=== PATIENT | male | born 1955 ===

== ENCOUNTER 2017-05-14 11:49 | Inpatient (IN) ==
[2017-05-14] MEDS ORDERED: PANTOPRAZOLE 40 MG VIAL IV STA (12:53)
[2017-05-14] MEDS ORDERED: ONDANSETRON 4 MG/2 ML VIAL IV STA (12:53)
[2017-05-14] MEDS ORDERED: SODIUM CHLORIDE 0.9% 1,000 ML IV STA (12:53)
[2017-05-14 13:05] LABS: Basophils % 0.3 % (0.0-0.8); Eosinophils # 0.2 10*3/uL (0.0-0.87); Eosinophils % 1.6 % (0.00-10.9); Hematocrit 42.4 VOL% (42.0-52.0); Hemoglobin 15.2 GM/DL (14.0-18.0); Immature Granulocytes % 0.5 %; Immature Granulocytes Absolute 0.05 #; Lymphocytes # 1.4 10*3/uL (1.4-4.0); Lymphocytes % 14.5 % (21.2-54.2); Mean Corpuscular HGB Conc 35.8 GM/DL (32-36); Mean Corpuscular Hemoglobin 33 PG (27-34); Mean Platelet Volume 10.5 FL (9.6-12.0); Monocytes # 1.1 10*3/uL (0.11-0.8); Monocytes % 11.1 % (1.7-12.7); Platelet Count 231 T/CUMM (130-400); Red Blood Count 4.56 MC/CUMM (3.8-5.5); Red Cell Distribution Width 12.1 % (9.3-17.3); White Blood Count 9.8 T/CUMM (4-12)
[2017-05-14 13:32] LABS: Lactic Acid 0.6 MMOL/L (0.4-2.0)
[2017-05-14 13:33] LABS: Albumin 3.5 G/DL (3.4-5.0); Bilirubin,Total 0.9 MG/DL (0.2-1.0); Calcium 9.1 MG/DL (8.5-10.1); Osmolality,Calculated 274.7 MOS/KG (273-304); Potassium 3.8 MMOL/L (3.5-5.1); Total Protein 7.1 G/DL (6.4-8.3)
[2017-05-14] MEDS ORDERED: ONDANSETRON 4 MG/2 ML VIAL ONE (13:34)
[2017-05-14] MEDS ORDERED: PANTOPRAZOLE 40 MG VIAL IV ONE (13:34)
[2017-05-14] MEDS ORDERED: HYDROmorphone 2 MG/1 ML VIAL IV STA (13:39)
[2017-05-14] MEDS ORDERED: HYDROmorphone 2 MG/1 ML VIAL ONE (13:40)
[2017-05-14] MEDS ORDERED: hydrALAZINE 20 MG/1 ML VIAL IV PRN (15:00)
[2017-05-14 15:43] LABS: Amylase 160 U/L (25-115); Triglycerides 167 MG/DL (2-150)
[2017-05-14] MEDS: HYDROmorphone 2 MG/1 ML VIAL IV PRN ×2 (16:28→22:07)
[2017-05-14] MEDS: metroNIDAZOLE INJ 500 MG in PREMIX 1 EACH IV SCH ×2 (16:28→21:56)
[2017-05-14] MEDS: FAMOTIDINE 20 MG/2 ML VIAL IV SCH (16:28)
[2017-05-14] MEDS: NICOTINE 21 MG/24 HR PATCH TRANSDERM SCH (16:29)
[2017-05-14] MEDS: CIPROFLOXACIN INJ 400 MG in PREMIX 1 EACH IV SCH (16:29)
[2017-05-14] MEDS: SODIUM CHLORIDE 0.9% 1,000 ML IV SCH (16:29)
[2017-05-14] MEDS: ONDANSETRON 4 MG/2 ML VIAL IV PRN (22:07)
[2017-05-15 02:28] LABS: Apearance,Urine Clear (Clear); Glucose,Urine (UA) Negative (Negative); Ketones,Urine Negative (Negative); Nitrite,Urine Negative (Negative); Protein,Urine Negative; Urine Color Yellow (Yellow); Urine Specific Gravity 1.025 (1.001-1.035)
[2017-05-15 02:29] LABS: Bilirubin,Urine Negative (Negative); Blood, Urine Negative (Negative); Urine Urobilinogen < 2.0 EU/DL (0.2-1.0)
[2017-05-15] MEDS: FAMOTIDINE 20 MG/2 ML VIAL IV SCH ×2 (03:37→16:34)
[2017-05-15] MEDS: HYDROmorphone 2 MG/1 ML VIAL IV PRN ×5 (03:37→22:36)
[2017-05-15] MEDS: CIPROFLOXACIN INJ 400 MG in PREMIX 1 EACH IV SCH (03:37)
[2017-05-15] MEDS: SODIUM CHLORIDE 0.9% 1,000 ML IV SCH ×3 (03:38→22:38)
[2017-05-15] MEDS: metroNIDAZOLE INJ 500 MG in PREMIX 1 EACH IV SCH ×2 (04:55→10:26)
[2017-05-15 08:31] LABS: Basophils % 0.2 % (0.0-0.8); Eosinophils # 0.1 10*3/uL (0.0-0.87); Eosinophils % 1.4 % (0.00-10.9); Hematocrit 38.5 VOL% (42.0-52.0); Hemoglobin 13.3 GM/DL (14.0-18.0); Immature Granulocytes % 0.3 %; Immature Granulocytes Absolute 0.03 #; Lymphocytes # 1.1 10*3/uL (1.4-4.0); Lymphocytes % 12.5 % (21.2-54.2); Mean Corpuscular HGB Conc 34.5 GM/DL (32-36); Mean Corpuscular Hemoglobin 33 PG (27-34); Mean Platelet Volume 10.3 FL (9.6-12.0); Monocytes # 0.8 10*3/uL (0.11-0.8); Monocytes % 9.6 % (1.7-12.7); Neutrophils # 6.6 10*3/uL (1.4-7.4); Platelet Count 213 T/CUMM (130-400); Red Blood Count 4.01 MC/CUMM (3.8-5.5); Red Cell Distribution Width 12.1 % (9.3-17.3); White Blood Count 8.7 T/CUMM (4-12)
[2017-05-15] MEDS: NICOTINE 21 MG/24 HR PATCH TRANSDERM SCH (08:53)
[2017-05-15 09:00] LABS: Bilirubin,Total 0.8 MG/DL (0.2-1.0); Calcium 8.7 MG/DL (8.5-10.1); Osmolality,Calculated 274.7 MOS/KG (273-304); Potassium 4.4 MMOL/L (3.5-5.1); Total Protein 5.8 G/DL (6.4-8.3)
[2017-05-16] MEDS: FAMOTIDINE 20 MG/2 ML VIAL IV SCH ×2 (03:51→16:21)
[2017-05-16] MEDS: ONDANSETRON 4 MG/2 ML VIAL IV PRN ×2 (05:04→19:03)
[2017-05-16] MEDS: SODIUM CHLORIDE 0.9% 1,000 ML IV SCH ×3 (05:07→21:22)
[2017-05-16 05:54] LABS: Basophils % 0.3 % (0.0-0.8); Eosinophils # 0.1 10*3/uL (0.0-0.87); Hematocrit 37.8 VOL% (42.0-52.0); Immature Granulocytes % 0.3 %; Immature Granulocytes Absolute 0.02 #; Lymphocytes # 0.9 10*3/uL (1.4-4.0); Lymphocytes % 12.8 % (21.2-54.2); Mean Corpuscular HGB Conc 34.4 GM/DL (32-36); Mean Corpuscular Hemoglobin 33 PG (27-34); Mean Corpuscular Volume 94.7 FL (87-102); Mean Platelet Volume 10.5 FL (9.6-12.0); Monocytes # 0.6 10*3/uL (0.11-0.8); Monocytes % 8.5 % (1.7-12.7); Neutrophils # 5.3 10*3/uL (1.4-7.4); Neutrophils % 76.1 % (38.7-73.9); Platelet Count 205 T/CUMM (130-400); Red Blood Count 3.99 MC/CUMM (3.8-5.5); Red Cell Distribution Width 11.9 % (9.3-17.3); White Blood Count 6.9 T/CUMM (4-12)
[2017-05-16 06:27] LABS: Albumin 2.8 G/DL (3.4-5.0); Bilirubin,Total 1.2 MG/DL (0.2-1.0); Calcium 8.7 MG/DL (8.5-10.1); Osmolality,Calculated 278.4 MOS/KG (273-304); Potassium 3.8 MMOL/L (3.5-5.1)
[2017-05-16] MEDS: HYDROmorphone 2 MG/1 ML VIAL IV PRN ×2 (07:38→23:27)
[2017-05-16] MEDS: NICOTINE 21 MG/24 HR PATCH TRANSDERM SCH (10:13)
[2017-05-16] MEDS ORDERED: ACETAMINOPHEN 325 MG TABLET PO PRN (15:02)
[2017-05-17] MEDS: FAMOTIDINE 20 MG/2 ML VIAL IV SCH ×2 (02:01→17:30)
[2017-05-17] MEDS: SODIUM CHLORIDE 0.9% 1,000 ML IV SCH ×3 (02:01→23:25)
[2017-05-17] MEDS: ONDANSETRON 4 MG/2 ML VIAL IV PRN (08:02)
[2017-05-17] MEDS: NICOTINE 21 MG/24 HR PATCH TRANSDERM SCH (08:04)
[2017-05-17] MEDS: HYDROmorphone 2 MG/1 ML VIAL IV PRN ×2 (10:00→18:57)
[2017-05-18] MEDS: FAMOTIDINE 20 MG/2 ML VIAL IV SCH (03:10)
[2017-05-18] MEDS ORDERED: PANTOPRAZOLE 40 MG TABLET PO SCH (11:30)
[2017-05-18] MEDS ORDERED: PROPOFOL 200 MG/20 ML VIAL IV ONE (11:45)
[2017-05-18] MEDS ORDERED: LIDOCAINE 2% 5 ML VIAL ONE (11:45)
[2017-05-18 12:27] VITALS: BP 145/87
[2017-05-18] MEDS: NICOTINE 21 MG/24 HR PATCH TRANSDERM SCH (12:36)
== END 2017-05-18 14:48 | disposition home or self-care (01) | DRG 440 ==
LOC: N.ED 11:49 → SUATTDRO 14:49 → N.EDINP 14:49 → N.5E 16:00
PROVIDERS: ATTEND Internal Medicine

== ENCOUNTER 2021-02-11 17:47 | Inpatient (IN) ==
[2021-02-11 18:27] LABS: Basophils % 0.3 % (0.0-0.8); Eosinophils # 0.1 10*3/uL (0.0-0.87); Hematocrit 44.2 VOL% (42.0-52.0); Hemoglobin 15.4 GM/DL (14.0-18.0); Immature Granulocytes % 0.5 %; Immature Granulocytes Absolute 0.06 #; Lymphocytes # 1.3 10*3/uL (1.4-4.0); Lymphocytes % 10.9 % (21.2-54.2); Mean Corpuscular HGB Conc 34.8 GM/DL (32-36); Mean Corpuscular Volume 92.9 FL (87-102); Mean Platelet Volume 10.8 FL (9.6-12.0); Monocytes % 6.2 % (1.7-12.7); Neutrophils % 81.1 % (38.7-73.9); Platelet Count 176 T/CUMM (130-400); Red Blood Count 4.76 MC/CUMM (3.8-5.5); Red Cell Distribution Width 12.3 % (9.3-17.3); White Blood Count 11.7 T/CUMM (4-12)
[2021-02-11] MEDS ORDERED: ALUM/MAG/SIMETH/LIDO VISC 1:1 30 ML BOTTLE PO STA (18:34)
[2021-02-11] MEDS ORDERED: ONDANSETRON 4 MG/2 ML VIAL IV STA (18:34)
[2021-02-11] MEDS ORDERED: HYDROmorphone 2 MG/1 ML VIAL IV STA ×2 (18:34→21:32)
[2021-02-11] MEDS ORDERED: PANTOPRAZOLE 40 MG VIAL IV STA (18:34)
[2021-02-11] MEDS ORDERED: SODIUM CHLORIDE 0.9% 500 ML IV STA (18:34)
[2021-02-11 18:50] LABS: Albumin 3.7 G/DL (3.4-5.0); Bilirubin,Total 0.7 MG/DL (0.20-1.00); Calcium 10.3 MG/DL (8.5-10.1); Osmolality,Calculated 281.3 MOS/KG (273-304); Potassium 3.2 MMOL/L (3.5-5.1); Total Protein 7.2 G/DL (6.4-8.2)
[2021-02-11] MEDS ORDERED: POTASSIUM CHLORIDE 20 MEQ TABLET PO STA (19:32)
[2021-02-11] MEDS ORDERED: PROMETHAZINE 25 MG/1 ML VIAL IM PRN (20:06)
[2021-02-11] MEDS ORDERED: DEXTROSE 50% 25 GM/50 ML VIAL IV PRN (20:06)
[2021-02-11] MEDS ORDERED: GLUCAGON 1 MG VIAL IM PRN (20:06)
[2021-02-11] MEDS ORDERED: hydrALAZINE 20 MG/1 ML VIAL IV PRN (20:06)
[2021-02-11] MEDS ORDERED: ZALEPLON 5 MG CAPSULE PO PRN (20:06)
[2021-02-11] MEDS ORDERED: NICOTINE 21 MG/24 HR PATCH TRANSDERM PRN (20:06)
[2021-02-11] MEDS ORDERED: ONDANSETRON 4 MG/2 ML VIAL IV PRN (20:06)
[2021-02-11 20:38] LABS: Risk Ratio 4.28; VLDL Cholesterol 36.8 MG/DL
[2021-02-11] MEDS: LACTATED RINGERS 1,000 ML IV SCH (22:30)
[2021-02-12] MEDS: HEPARIN 5,000 UNIT/1 ML VIAL SUBCUT SCH ×3 (00:01→21:17)
[2021-02-12 04:49] LABS: Basophils % 0.3 % (0.0-0.8); Eosinophils # 0.1 10*3/uL (0.0-0.87); Hematocrit 42.3 VOL% (42.0-52.0); Hemoglobin 14.4 GM/DL (14.0-18.0); Immature Granulocytes % 0.4 %; Immature Granulocytes Absolute 0.04 #; Lymphocytes # 1.2 10*3/uL (1.4-4.0); Lymphocytes % 10.9 % (21.2-54.2); Mean Corpuscular Volume 94.6 FL (87-102); Mean Platelet Volume 11.3 FL (9.6-12.0); Monocytes % 8.7 % (1.7-12.7); Neutrophils % 78.7 % (38.7-73.9); Platelet Count 169 T/CUMM (130-400); Red Blood Count 4.47 MC/CUMM (3.8-5.5); Red Cell Distribution Width 12.4 % (9.3-17.3); White Blood Count 10.6 T/CUMM (4-12)
[2021-02-12 05:12] LABS: Albumin 3.1 G/DL (3.4-5.0); Bilirubin,Total 1.9 MG/DL (0.20-1.00); Calcium 9.5 MG/DL (8.5-10.1); Osmolality,Calculated 277.4 MOS/KG (273-304); Potassium 3.4 MMOL/L (3.5-5.1); Total Protein 6.3 G/DL (6.4-8.2)
[2021-02-12] MEDS ORDERED: NITROGLYCERIN SL 0.4 MG TABLET SL PRN (05:53)
[2021-02-12] MEDS ORDERED: DICLOFENAC SODIUM 75 MG TABLET PO PRN (05:53)
[2021-02-12] MEDS ORDERED: POTASSIUM CHLORIDE RIDER 20 MEQ/100 ML PREMIX IV PRN (09:00)
[2021-02-12] MEDS: LACTATED RINGERS 1,000 ML IV SCH ×2 (10:33→21:19)
[2021-02-12] MEDS: MORPHINE 2 MG/1 ML SYRINGE IV PRN ×2 (10:34→19:12)
[2021-02-12] MEDS: ASPIRIN EC 81 MG TABLET PO SCH (10:37)
[2021-02-12] MEDS: POTASSIUM CHLORIDE 20 MEQ TABLET PO PRN ×2 (10:37→18:14)
[2021-02-12] MEDS: ATORVASTATIN 80 MG TABLET PO SCH (10:37)
[2021-02-12] MEDS: TICAGRELOR 90 MG TABLET PO SCH ×2 (10:37→21:12)
[2021-02-12] MEDS: LISINOPRIL/HCTZ 20-12.5 MG TABLET PO SCH (10:37)
[2021-02-12] MEDS: METOPROLOL TARTRATE 25 MG TABLET PO SCH ×2 (10:38→21:12)
[2021-02-12] MEDS: PANTOPRAZOLE 40 MG VIAL IV SCH (21:15)
[2021-02-13] MEDS: POTASSIUM CHLORIDE 20 MEQ TABLET PO PRN (05:34)
[2021-02-13] MEDS: LACTATED RINGERS 1,000 ML IV SCH (05:35)
[2021-02-13] MEDS: PANTOPRAZOLE 40 MG VIAL IV SCH (08:36)
[2021-02-13] MEDS: LISINOPRIL/HCTZ 20-12.5 MG TABLET PO SCH (08:37)
[2021-02-13] MEDS: ASPIRIN EC 81 MG TABLET PO SCH (08:37)
[2021-02-13] MEDS: TICAGRELOR 90 MG TABLET PO SCH (08:37)
[2021-02-13] MEDS: ATORVASTATIN 80 MG TABLET PO SCH (08:37)
[2021-02-13] MEDS: METOPROLOL TARTRATE 25 MG TABLET PO SCH (08:37)
[2021-02-13] MEDS: HEPARIN 5,000 UNIT/1 ML VIAL SUBCUT SCH (08:38)
[2021-02-13 13:20] LABS: Basophils % 0.2 % (0.0-0.8); Eosinophils # 0.2 10*3/uL (0.0-0.87); Eosinophils % 2.4 % (0.00-10.9); Hematocrit 41.6 VOL% (42.0-52.0); Immature Granulocytes % 0.5 %; Immature Granulocytes Absolute 0.03 #; Lymphocytes # 1.4 10*3/uL (1.4-4.0); Lymphocytes % 20.6 % (21.2-54.2); Mean Corpuscular HGB Conc 33.7 GM/DL (32-36); Mean Corpuscular Volume 94.5 FL (87-102); Mean Platelet Volume 10.7 FL (9.6-12.0); Monocytes % 9.2 % (1.7-12.7); Neutrophils % 67.1 % (38.7-73.9); Platelet Count 180 T/CUMM (130-400); Red Cell Distribution Width 12.2 % (9.3-17.3); White Blood Count 6.7 T/CUMM (4-12)
[2021-02-13 13:35] LABS: Calcium 9.5 MG/DL (8.5-10.1); Osmolality,Calculated 276.5 MOS/KG (273-304); Potassium 3.8 MMOL/L (3.5-5.1)
[2021-02-13 16:19] VITALS: BP 122/63
[2021-02-14] MEDS ORDERED: lisinopriL 20 MG TABLET PO SCH (09:00)
== END 2021-02-13 17:49 | disposition home or self-care (01) | DRG 440 ==
LOC: N.ED 17:47 → N.EDINP 20:06 → N.5E 22:28
PROVIDERS: ADMIT Emergency Medicine; ATTEND Emergency Medicine